=== PATIENT | male | born 1975 | race Caucasian/White ===

== ENCOUNTER 2016-08-04 15:15 | Emergency (ER) ==
[2016-08-04 15:26] VITALS: BP 153/94; TEMP 99.9; BMI 25.3
--- NOTE | 2016-08-04 15:39 | ED.PDOC ---
General ED Provider: Dr. DEVIKA BRANDON JR Chief Complaint: Sore Throat Stated Complaint: SORE THROAT, FEVER. TOOK AMOXICILLIN, LEFTOVER FROM A FRIEND GOT BETTER. STATES WAS NOT A FULL Rx SO SYMPTOMS CAME BACK. FEVER HAS BEEN UP TO 101.7[End]99.9 104 20 95% 153/94 10 Time Seen by Physician: 15:38 Mode of Arrival: Walk-In Information Source: Patient Exam Limitations: No limitations Nursing and Triage Documentation Reviewed and Agree: No Review of Systems - Review Of Systems Constitutional: Reports: Fever, Malaise, Weakness Eyes: Reports: No symptoms Ears, Nose, Mouth, Throat: Reports: Throat pain Respiratory: Reports: No symptoms Cardiac: Reports: No symptoms GI: Reports: No symptoms : Reports: No symptoms Musculoskeletal: Reports: No symptoms Skin: Reports: No symptoms Neurological: Reports: No symptoms Endocrine: Reports: No symptoms Hematologic/Lymphatic: Reports: No symptoms All Other Systems: Other Past Medical History - Past Medical History Previously Healthy: Yes Endocrine: Reports: None Cardiovascular: Reports: Hypertension Respiratory: Reports: None Hematological: Reports: None Gastrointestinal: Reports: None Genitourinary: Reports: None Neuro/Psych: Reports: None Musculoskeletal: Reports: None Cancer: Reports: None - Surgical History General Surgical History: Reports: None - Family History Family History: Reports: Unknown - Social History Smoking Status: Current every day smoker, Heavy tobacco smoker Hx Substance Use: No Alcohol Screening: Occasionally Physical Exam - Physical Exam Appearance: Well-appearing Pain Distress: Moderate Eyes: JUSTYNA, EOMI, Conjunctiva clear ENT: Ears normal, Nose normal, Erythema Neck: Supple Respiratory: Airway patent, Breath sounds clear, Breath sounds equal, Respirations nonlabored Cardiovascular: RRR, Pulses normal, No rub, No murmur GI/: Soft, Nontender, No masses, Bowel sounds normal, No Organomegaly Musculoskeletal: Normal strength, ROM intact, No edema, No calf tenderness Skin: Warm, Dry, Normal color Neurological: Sensation intact, Motor intact, Reflexes intact, Cranial nerves intact, Alert, Oriented Psychiatric: Affect appropriate, Mood appropriate Critical Care Note - Critical Care Note Total Time (mins): 0 Course - Course Orders, Labs, Meds: Orders Category Date Time Status RAPID FLU A/B Stat LAB 08/04/16 15:25 Uncollected STREP SCREEN Stat LAB 08/04/16 15:25 Uncollected Vital Signs: Temp Pulse Resp BP Pulse Ox 08/04/16 15:19 99.9 F H 104 H 20 153/94 H 95 Departure - Departure Time of Disposition: 16:07 Disposition: HOME SELF-CARE Discharge Problem: Sore throat symptom, Obstructive chronic bronchitis with exacerbation Instructions: COPD (Chronic Obstructive Pulmonary Disease) (ED), Pharyngitis ( ED) Condition: Fair Pt referred to PMD for follow-up: Yes Additional Instructions: Augmentin for infection recommend stop smoking nicotine patches may help combivent for wheezing recheck 2 weeks sooner if not resolved Allergies/Adverse Reactions: Allergies No Known Allergies Allergy (Unverified 08/04/16 15:25) Home Medications: Ambulatory Orders 1 [No Reported Medications] 08/04/16
[2016-08-04 15:53] LABS: FLU INTERNAL QC INTERNAL QC VALID; RAPID FLU A NEGATIVE (NEGATIVE); RAPID FLU B NEGATIVE (NEGATIVE)
== END 2016-08-04 16:23 | disposition home or self-care (01) ==
LOC: ED 15:15
DX: J02.9 Acute pharyngitis, unspecified (principal); J44.1 Chronic obstructive pulmonary disease with (acute) exacerbation; I10 Essential (primary) hypertension; F17.210 Nicotine dependence, cigarettes, uncomplicated
CPT/HCPCS: 87651; 87804; 87880; 99283